=== PATIENT | female | born 1980 | race Caucasian/White ===

== ENCOUNTER 2017-05-12 12:45 | Inpatient (IN) | payer OTHER ==
[2017-05-22] MEDS ORDERED: Buffered Lidocaine 0.9% SYRIN* 5 ML/SYR SYRINGE INTRADERM ONE (09:34)
[2017-05-26] MEDS ORDERED: Metoclopramide TAB* 10 MG PO ONE (06:00)
[2017-05-26] MEDS ORDERED: Famotidine IV* 10 MG/ML 2 ML (20 mg) IV ONE (06:00)
[2017-05-26] MEDS ORDERED: Famotidine IV* 10 MG/ML 2 ML (20 mg) ONE (06:44)
[2017-05-26] MEDS ORDERED: Metoclopramide TAB* 10 MG ONE (06:44)
[2017-05-26] MEDS ORDERED: Heparin VIAL(*) 5000 UNITS/ML VIAL (FIVE THOUSAND) ONE ×2 (06:44→13:43)
[2017-05-26] MEDS ORDERED: Buffered Lidocaine 0.9% SYRIN* 5 ML/SYR SYRINGE ONE (06:45)
[2017-05-26] MEDS ORDERED: ceFAZolin 2 GM PREMIX (*) 2 GM/50 ML BAG IVPB ONE (06:45)
[2017-05-26] MEDS ORDERED: ceFAZolin 1 GM in Dextrose (*) 1 GM/50 ML BAG IVPB ONE (06:45)
[2017-05-26] MEDS ORDERED: Clindamycin 900 MG IVPREMIX(* 900 MG/50 ML SDV IV ONE (06:45)
[2017-05-26] MEDS ORDERED: Methylene Blue 0.5 %* 50 MG/10 ML AMP IV ONE (07:10)
[2017-05-26] MEDS ORDERED: Bupivacaine 0.25% SDV* 30 ML ONE (07:10)
[2017-05-26] MEDS ORDERED: KETAMINE HCL* 50 MG/ML 10 ML VIAL ONE (07:24)
[2017-05-26] MEDS ORDERED: Midazolam* 1 MG/ML 10 ML VIAL (10 MG) ONE (07:24)
[2017-05-26] MEDS ORDERED: Lidocaine 2% PF * 5 ML VIAL ONE (07:24)
[2017-05-26] MEDS ORDERED: Ketorolac INJ* 30 MG/ML 1 ML VIAL ONE (07:24)
[2017-05-26] MEDS ORDERED: Propofol* 10 MG/ML 20 ML BTL IV PUSH ONE (07:24)
[2017-05-26] MEDS ORDERED: Ondansetron INJ* 2 MG/ML VIAL ONE ×2 (07:24→10:59)
[2017-05-26] MEDS ORDERED: Dexamethasone IV* 4 MG/ML 1 ML (4 MG) ONE (07:24)
[2017-05-26] MEDS ORDERED: Rocuronium* 10 MG/ML VIAL ONE ×2 (07:24→08:32)
[2017-05-26] MEDS ORDERED: fentaNYL* 50 MCG/ML 5 ML VIAL (250 MCG VIAL) ONE (07:25)
[2017-05-26] MEDS ORDERED: fentaNYL* 50 MCG/ML 2 ML VIAL (100 MCG VIAL) ONE ×4 (08:34→11:35)
[2017-05-26] MEDS ORDERED: EPHEDrine (Pressors)* 50 MG/ML VIAL ONE (08:34)
[2017-05-26] MEDS ORDERED: Ondansetron INJ* 2 MG/ML VIAL IV PRN ×2 (09:03→10:54)
[2017-05-26] MEDS ORDERED: HYDROmorphone INJ* 1 MG/ML CARPUJECT SYRINGE IV PRN (09:03)
[2017-05-26] MEDS ORDERED: Scopolamine 1.5 mg* PATCH TRANSDERM PRN (09:03)
--- NOTE | 2017-05-26 10:47 | BRIEFOPN ---
Brief Operative Note - Surgery Procedures: Preop Dx: Morbid Obesity Postop Dx: same Procedure: Laparoscopic Kiko En Y gastric bypass Anesthesia: GET Surgeon: Vikki Asst: ALEJANDRO Tanner Fluids: 2 L RL EBL: 10 ml Drains: 1 PATT Specimen: none Findings: dictated
[2017-05-26] MEDS ORDERED: Acetaminophen ADULT LIQ* 650 MG/20.3 ML UDC PO PRN (10:54)
[2017-05-26] MEDS ORDERED: HYDROmorphone INJ* 2 MG/ML CARPUJECT SYRINGE IV PRN ×2 (10:54)
[2017-05-26] MEDS ORDERED: diPHENhydraMINE IV* 50 MG/ML 1 ml VIAL (BENADRYL) SLOW PUSH PRN (10:54)
[2017-05-26] MEDS ORDERED: Scopolamine 1.5 mg* PATCH ONE (10:59)
[2017-05-26] MEDS: fentaNYL* 50 MCG/ML 2 ML VIAL (100 MCG VIAL) IV PRN ×3 (11:04→11:52)
[2017-05-26] MEDS ORDERED: HYDROmorphone INJ* 1 MG/ML CARPUJECT SYRINGE ONE (11:36)
[2017-05-26] MEDS ORDERED: DiMENhydriNATE IV* 50 MG/ML VIAL IV PUSH ONE (13:25)
[2017-05-26] MEDS ORDERED: DiMENhydriNATE IV* 50 MG/ML VIAL ONE (13:28)
[2017-05-26] MEDS: Heparin VIAL(*) 5000 UNITS/ML VIAL (FIVE THOUSAND) SUBCUT SCH ×2 (13:46→21:28)
[2017-05-26] MEDS: Ketorolac INJ* 30 MG/ML 1 ML VIAL IV PRN ×2 (13:46→21:42)
[2017-05-26] MEDS: Famotidine IV* 10 MG/ML 2 ML (20 mg) IV SLOW PU SCH (21:28)
--- NOTE | 2017-05-27 04:56 | OP ---
CC: Samara Mendieta MD in [facility]. * DATE OF OPERATION: 05/26/17 - ROOM #352 DATE OF : 80 SURGEON: Dr. Florez. MANAGER TALENT: ALEJANDRO Middleton ANESTHESIOLOGIST: Pawel Cee MD ANESTHESIA: General endotracheal. PRE-OP DIAGNOSIS: Morbid obesity. POST-OP DIAGNOSIS: Morbid obesity. OPERATIVE PROCEDURE: Laparoscopic Kiko-en-Y gastric bypass. ESTIMATED BLOOD LOSS: Less than 30 mL. IV FLUIDS: Total 2 liters LR. SPECIMENS: None. DRAINS: Nathan Thomason, 7 mm x1. COMPLICATIONS: None. COUNTS: Instrument, needle, and sponge counts correct. DESCRIPTION OF PROCEDURE: The patient was brought to the operating room and placed on the table supine. Sequential compression devices were placed on both lower extremities and general anesthesia was administered. Ojeda catheter was placed. She was positioned and padded appropriately. She received appropriate intravenous antibiotics. Time-out was performed. Local anesthetic was infiltrated into the skin and soft tissue prior to making each incision. Entry to the abdomen was through a left upper quadrant incision accommodating a 12-mm optical trocar, and after accessing the peritoneal cavity , carbon-dioxide was insufflated to a pressure of 15 mmHg. It was immediately noted that there was an extremely large liver which necessitated halting placement of the trocar sites, so that the initial trocar was ultimately used for the liver retractor site. A 12-mm bladeless trocar was placed in the right upper quadrant. A 12-mm trocar was placed in the supraumbilical region about 8 cm below the initial trocar and 5 mm trocars were placed laterally in the left upper quadrant and medially in the right upper quadrant. After placing the Natalie liver retractor, the gastric anatomy was inspected and noted to be normal. The stomach was mobilized away from the left carmen of the diaphragm using blunt dissection and then a perigastric dissection was undertaken on the lesser curvature and the lesser sac was entered. The gastric pouch was fashioned with several firings of the EndoGIA stapler using doshi cartridges and gastric pouch created was about 15 to 30 mL volume. Staple lines were noted to be intact and hemostatic. A 34-Guyanese gastric lavage tube was placed into the gastric pouch. The omentum was retracted superiorly and divided down the midline with LigaSure. Transverse colon was retracted superiorly and ligament of Treitz was identified. Then, jejunum was measured at 40 to 50 cm and sutured to the lateral staple line of the gastric pouch with interrupted 2-0 silk. Then, a gastrojejunal anastomosis was created with a 30 mm linear doshi TANYA stapler cartridge with the closure of the gastroenterotomy performed with 3- 0 PDS over the 34-Guyanese gastric lavage tube. The Kiko limb was completed by dividing the loop to the left of the anastomosis and then measuring the Kiko limb out for 75 cm and at that point creating a functional end-to-side jejunojejunostomy with a 60-mm linear doshi cartridge and then this enterotomy was closed with running 4-0 PDS. Anti-obstruction sutures with 3-0 silk were placed proximally and distally to the anastomosis and the mesenteric defect was closed with 3-0 silk in a running fashion. The anastomosis of the jejunojejunostomy was tested with methylene blue dye solution instilled through the orogastric tube and no leak was identified. A 7-mm Nathan-Thomason drain was placed into the abdominal cavity, withdrawn through the 5-mm lateral left upper quadrant trocar, and the drain was placed along the lateral left aspect of the gastrojejunal anastomosis. The drain was sutured to the skin with 3-0 Prolene. The ports were removed under direct visualization and carbon dioxide was released. Skin was closed with constantine. The wounds were dressed with Coverlets. The patient tolerated the procedure well, was extubated and transferred to Recovery in stable condition. [id number]/[facility] #: [id number] MTDD
[2017-05-27] MEDS: Heparin VIAL(*) 5000 UNITS/ML VIAL (FIVE THOUSAND) SUBCUT SCH ×3 (05:45→20:08)
--- NOTE | 2017-05-27 08:18 | SURGPN ---
Subjective - Introduction -: Admitted on: 05/26/2017 Patient's surgical date: 05/26/2017 Procedure completed: Laparoscopic RYGB - Medications -: Active Medications Generic Name Dose Route Start Last Admin Trade Name Freq PRN Reason Stop Dose Admin Acetaminophen 650 mg 05/26/17 10:54 Tylenol Adult Liq* PO Q6H PRN Temp > 101 F Or Mild Pain Hydrocodone Bitart/Acetaminophen 15 ml 05/26/17 10:54 Nortab 7.5/325 Liq* PO Q6H PRN PAIN Diphenhydramine HCl 25 mg 05/26/17 10:54 05/26/17 13:31 Benadryl Iv* SLOW PUSH 25 mg Q6H PRN Administration ITCHING Famotidine 20 mg 05/26/17 21:00 05/26/17 21:28 Pepcid Iv* IV SLOW PU 20 mg BID EVAN Administration Heparin Sodium (Porcine) 5,000 units 05/26/17 22:00 05/27/17 05:45 Heparin Vial(*) SUBCUT 5,000 units Q8HR EVAN Administration Hydromorphone HCl 0.5 mg 05/26/17 10:54 Dilaudid Inj* IV Q3H PRN PAIN Hydromorphone HCl 1 mg 05/26/17 10:54 05/26/17 17:27 Dilaudid Inj* IV 1 mg Q3H PRN Administration more severe pain Potassium Chloride/Dextrose 1,000 mls @ 125 mls/hr 05/27/17 11:01 D5w 1/2 Ns Kcl 20 Meq 1000 Ml* IV PER RATE EVAN Lactated Ringer's 1,000 mls @ 150 mls/hr 05/26/17 11:00 05/27/17 03:15 Lactated Ringers 1000 Ml Bag* IV 05/27/17 11:01 150 mls/hr PER RATE EVAN Administration Ketorolac Tromethamine 30 mg 05/26/17 10:54 05/26/17 21:42 Toradol Inj* IV 05/28/17 11:02 30 mg Q6H PRN Administration PAIN Ondansetron HCl 4 mg 05/26/17 10:54 Zofran Inj* IV Q6H PRN NAUSEA/VOMITING Pharmacy Profile Note 1 note 05/29/17 09:05 Scopolamine Patch Remove* PATCH OFF 05/29/17 09:06 Q72H ONE - Comments Comments: Patient seen and examined at bedside. Reports doing well overall. Minimal incisional pain only when she coughs. Nausea last night, resolved, denies any vomiting. Ambulatory since last night. Wants to go home later today. Objective - Objective -: Awake and alert, sitting on her beds, appears comfortable and in NAD. - Intake and Output -: Intake & Output 05/25/17 05/26/17 05/27/17 05/28/17 06:59 06:59 06:59 06:59 Intake Total 4401 Output Total 957 650 Balance 3444 -650 Weight 346 lb Intake: IV Fluids 4401 CEFAZOLIN 3GM IV 100 CLINDAMYCIN 900MG IV 50 LR 4251 Oral 0 Output: PATT #1 107 Urine 0 650 Ojeda 850 Other: Estimated Void Medium # Bowel Movements 0 Surgical Physical Exam - Comments -: Vitals reviewed, afebrile Heart RRR, no murmurs Lungs CTA blat. Abdomen soft, NT, ND. Incisions clean and dry. No guarding or rigidity. PATT drain with approx. 50 cc serosangionous output. Ext. without edema Assessment and Plan - Assessment -: A 36 y/o female, POD#1, s/p laparoscopic Kiko-en-Y gastric bypass, stable and doing well - Plan Additional Comments: Ojeda already d/c'ed last night Start Baritric clear liquids today Ambulate as tolerated Likely home in AM 05/28
[2017-05-27] MEDS: Famotidine IV* 10 MG/ML 2 ML (20 mg) IV SLOW PU SCH ×2 (08:42→20:08)
[2017-05-27] MEDS: D5W 1/2 NS KCl 20 Meq 1000 ML* 1,000 ML IV SCH ×2 (10:11→18:24)
[2017-05-27] MEDS: Ketorolac INJ* 30 MG/ML 1 ML VIAL IV PRN (12:17)
[2017-05-27] MEDS: HYDROcodone/ACET. 7.5/325 LIQ* 15 ML UDC PO PRN (20:08)
[2017-05-28] MEDS: D5W 1/2 NS KCl 20 Meq 1000 ML* 1,000 ML IV SCH (02:27)
[2017-05-28] MEDS: HYDROcodone/ACET. 7.5/325 LIQ* 15 ML UDC PO PRN (05:49)
[2017-05-28] MEDS: Heparin VIAL(*) 5000 UNITS/ML VIAL (FIVE THOUSAND) SUBCUT SCH (05:50)
[2017-05-28 07:54] VITALS: BP 140/79
[2017-05-28] MEDS: Famotidine IV* 10 MG/ML 2 ML (20 mg) IV SLOW PU SCH (08:58)
--- NOTE | 2017-05-28 15:03 | DS ---
CC: Dr. Samara Mendieta [place] * DISCHARGE SUMMARY: DATE OF ADMISSION: 05/26/17 DATE OF DISCHARGE: 05/28/17 ATTENDING SURGEON: Sanjay Florez MD * (ALEJANDRO Middleton dictating). HOSPITAL COURSE: Please refer to admission history and physical and operative note for admission and surgery details. Briefly, the patient was taken to the operating room on 05/26/17, at which time she underwent a laparoscopic Kiko-En- Y gastric bypass with Dr. Florez. Surgery was otherwise uneventful. She did have a Nathan- Thomason drain placed. Over the next 48 hours, her pain was under good control with oral medications and she was tolerating bariatric clear liquids in adequate amounts. Her urine output was good. She will be discharged with the drain in place with plans to be seen on 06/02/17 for possible drain removal. PHYSICAL EXAMINATION: Physical examination as of the morning of discharge; temperature 97.3, blood pressure 140/79, pulse 80, respirations 20, room air saturation 95%. General: Well nourished, obese and in no acute distress. Heart: Regular rate and rhythm. Lungs are clear to auscultation. Abdomen: Bowel sounds present. Laparoscopic incision sites are clean and dry. She does have some ecchymosis in the lower abdomen from subcutaneous heparin injections. Possibly small hematoma in the right lateral site. Abdomen, otherwise soft and nontender. IMPRESSION: Status post Kiko-En-Y gastric bypass, doing well. PLAN: Home today with drain. She has prescription for hydrocodone APAP liquid. Instructions were reviewed regarding wound care, diet and activity. Follow up as scheduled on 06/02/17 for possible drain removal. ALEJANDRO MIDDLETON [id number]/[facility] #: [id number] MTDD
[2017-05-29] MEDS ORDERED: Scopolamine PATCH Remove* 1 NOTE MISC PATCH OFF ONE (09:05)
== END 2017-05-28 11:08 | disposition home or self-care (01) | DRG 403 ==
LOC: AA 05-26 06:10 → SSU 05-26 13:10
PROVIDERS: ADMIT Surgery; ATTEND Surgery
PROC: 0D164ZA Bypass Stomach to Jejunum, Percutaneous Endoscopic Approach (ICD-10-PCS; principal; 2017-05-26 07:45)
DX: E66.01 Morbid (severe) obesity due to excess calories (principal); E11.9 Type 2 diabetes mellitus without complications; E28.2 Polycystic ovarian syndrome; G47.33 Obstructive sleep apnea (adult) (pediatric); G43.909 Migraine, unspecified, not intractable, without status migrainosus; E55.9 Vitamin D deficiency, unspecified; R11.0 Nausea; Z82.49 Family history of ischemic heart disease and other diseases of the circulatory system; Z83.6 Family history of other diseases of the respiratory system; Z81.8 Family history of other mental and behavioral disorders; Z83.79 Family history of other diseases of the digestive system; Z68.44 Body mass index [BMI] 60.0-69.9, adult
CPT/HCPCS: 43644; 81025; 94760; A9270-GY; C1776; J0690; J1100; J1170; J1240; J1644; J1885; J2250; J2405; J2704; J3010